=== PATIENT | male | born 1965 | race Caucasian/White ===

== ENCOUNTER 2017-02-23 10:53 | Outpatient (CLI) | payer SELFPAY | END 2017-02-23 10:54 | disposition EMS.NT | LOC: EMS 10:53 → MERGE 10:53 → EMS 10:54 | PROVIDERS: ATTEND Surgery | DX: R06.02 Shortness of breath (principal) ==

== ENCOUNTER 2017-02-23 11:20 | Emergency (ER) | payer OTHER ==
[2017-02-23] MEDS ORDERED: ALBUTEROL NEB 2.5 MG/3 ML INH STA (11:33)
--- NOTE | 2017-02-23 11:36 | ED Physician Documentation ---
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 open a pea trap and there were drain products in the trap and he inhaled the fumes worked for a few minutes then began to feel shaky and cough so left even after returning to fresh air the symptoms persist also got splashed but he washed that off Review of Systems Cardiac: reports: Chest pain / pressure Respiratory: reports: Dyspnea, Cough PD PAST MEDICAL HISTORY - Present Medications Home Medications: Ambulatory Orders Medication Instructions Recorded Confirmed Albuterol Sulfate [Proair Hfa 2 puffs INH Q4H PRN #1 inhaler 02/23/17 Inhaler] Levothyroxine [Synthroid] 25 mcg PO DAILY 02/23/17 02/23/17 Lisinopril 20 mg PO DAILY 02/23/17 02/23/17 predniSONE [Deltasone] 60 mg PO DAILY 5 Days 02/23/17 - Allergies Allergies/Adverse Reactions: Allergies Allergy/AdvReac Type Severity Reaction Status Date / Time No Known Drug Allergies Allergy Verified 02/23/17 11:28 PD ED PE NORMAL - Vitals Vital signs reviewed: Yes - HEENT HEENT: Other (no visible burn or erythema or swelling) - Respiratory Respiratory: No respiratory distress, Other (coughing, dec air movement) - Neuro Neuro: Alert and oriented X 3 Results - Vitals Vitals: Vital Signs - 24 hr 02/23/17 02/23/17 02/23/17 11:22 11:45 14:05 Temperature 36.6 C Heart Rate 94 80 85 Respiratory 16 18 20 Rate Blood Pressure 109/50 L 146/99 H O2 Saturation 96 99 02/23/17 15:10 Temperature Heart Rate 90 Respiratory 18 Rate Blood Pressure O2 Saturation 100 Oxygen O2 Source Room air - Rads (name of study) CXR Radiology: See rad report (minimal scar and/or atelectasis lingula) PD MEDICAL DECISION MAKING - ED course ED course: pt able to get names of drain computer compositor that wre involved - liquid plummr pro ( sodium hydroxide, sodium hypochloritie, surfactants) and liquid lightning ( buffers sulfuric acid) d/w poison control - these can combine to release chloride gas rec watching pt in ER for several hr - if better dc, if worse get another CXR to look for developing pneumonitis no change with neb tried prednisone and cough meds too pt observed 4 hr and gradually improved now able to walk around the ER s sig sx and sat 100% pt states he has called the house and house shoe puller is OK Departure - Departure Disposition: 01 Home, Self Care Clinical Impression: Acute chemical pneumonitis Condition: Good Instructions: ED Inhalation Chemical Prescriptions: predniSONE [Deltasone] 60 mg PO DAILY 5 Days Albuterol Sulfate [Proair Hfa Inhaler] 2 puffs INH Q4H PRN #1 inhaler PRN Reason: Shortness Of Air/Wheezing Comments: Please follow up with your PMD if the symptoms persist Return to the ER if worse Also, please have your PMD recheck your blood pressure - it was high today Forms: Activity restrictions
[2017-02-23] MEDS ORDERED: ALBUTEROL NEB 2.5 MG/3 ML INH ONE (11:45)
--- NOTE | 2017-02-23 12:29 | XRAY Preliminary Report ---
Exam: XR Chest 2 View PA/LAT IMPRESSION: 1. Minimal scar and/or subsegmental atelectasis at the lingula. No pneumothorax or pleural effusion. [facility] SITE ID: [id number]
--- NOTE | 2017-02-23 12:31 | XRAY Report ---
EXAM: CHEST RADIOGRAPHY EXAM DATE: 02/23/2017 11:53 AM. CLINICAL HISTORY: Cough and chest pain after inhaling book cleaner. COMPARISON: None. TECHNIQUE: 2 views. FINDINGS: Lungs/Pleura: Minimal scar and/or subsegmental atelectasis at the lingula. No pneumothorax or pleural effusion. No focal consolidation. Mediastinum: Heart and mediastinal contours are unremarkable. Other: None. IMPRESSION: 1. Minimal scar and/or subsegmental atelectasis at the lingula. No pneumothorax or pleural effusion. [facility] Referring Provider Line: [phone] SITE ID: [id number]
[2017-02-23] MEDS ORDERED: predniSONE 20 MG TABLET PO STA (12:51)
[2017-02-23] MEDS ORDERED: guaiFENesin/CODEINE 5 ML UDC PO STA (12:51)
[2017-02-23] MEDS ORDERED: predniSONE 20 MG TABLET ONE (13:11)
[2017-02-23] MEDS ORDERED: guaiFENesin/CODEINE 5 ML UDC ONE (13:12)
[2017-02-23 14:06] VITALS: BP 146/99
== END 2017-02-23 15:23 | disposition home or self-care (01) ==
LOC: EDBD → ED 11:20 → MERGE 11:20 → ED 15:23
DX: T59.891A Toxic effect of other specified gases, fumes and vapors, accidental (unintentional), initial encounter (principal); J68.0 Bronchitis and pneumonitis due to chemicals, gases, fumes and vapors
CPT/HCPCS: 1040M; 71020; 94640; 99283; A9270; J7512; J7613

== ENCOUNTER 2018-11-13 21:54 | Emergency (ER) | payer OTHER ==
--- NOTE | 2018-11-13 22:17 | ED Physician Documentation ---
PD HPI NECK PAIN - Stated complaint Stated Complaint: NECK PX - Chief complaint Chief Complaint: Trauma Hd/Nk - History obtained from History obtained from: Patient - History of Present Illness Timing - onset: How many days ago Timing - duration: Days (5) Timing - details: Gradual onset Pain level max: 9 Pain level now: 5 Location: Left Quality: Pain. No: Throbbing Associated symptoms: Numbness (Chronic numbness to the right thumb due to cervical arthritis). No: Fever, Weakness Improves with: Nothing Worsened by: Movement Contributing factors: No: Lifting, Twisting Similar symptoms before: Has not had sx before Recently seen: Not recently seen - Additional information Additional information: This is a 53-year-old man who presents with complaints that he developed pain behind his left ear 5 days ago. He woke up with it has been constant since then. He is been taking Tylenol just 1 325 mg tablet at a time the last dose was around 2 hours ago and ibuprofen just 200 mg at a time last dose was at noon. He denies any injury. Started out kind of across the back of his head but then centered behind the left ear. He is been putting heat on it. He has not tried icing it. He has not noted anything that makes it really worse and is not getting any relief from the meds. It is bothering him enough that he is only sleeping a few hours at a time and then has to get up because he is so uncomfortable. Denies any blurry or double vision, no pain radiating down the arms or legs he does have some chronic numbness in the right thumb. He denies any shortness of breath or cough. Denies ear pain or sore throat. No dizziness. 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 Review of Systems Constitutional: denies: Fever Ears: denies: Ear pain Nose: denies: Congestion Respiratory: denies: Dyspnea, Cough Skin: denies: Rash Musculoskeletal: reports: Neck pain Neurologic: denies: Generalized weakness, Focal weakness, Numbness, Headache, Head injury PD PAST MEDICAL HISTORY - Past Medical History Cardiovascular: None Respiratory: Sleep apnea Endocrine/Autoimmune: HyPOthyroidism, Type 2 diabetes HEENT: Chronic hearing loss, Other Psych: None Musculoskeletal: None Derm: None - Past Surgical History Past Surgical History: No - Present Medications Home Medications: Ambulatory Orders Medication Instructions Recorded Confirmed Levothyroxine [Synthroid] 25 mcg PO DAILY 02/23/17 11/13/18 Lisinopril 20 mg PO DAILY 02/23/17 11/13/18 Cyclobenzaprine [Flexeril] 10 mg PO TID PRN #10 tablet 11/13/18 Esomeprazole Magnesium [Nexium] 20 mg PO DAILY 11/13/18 11/13/18 Ibuprofen [Motrin] 600 mg PO Q6H PRN #30 tab 11/13/18 - Allergies Allergies/Adverse Reactions: Allergies Allergy/AdvReac Type Severity Reaction Status Date / Time No Known Drug Allergies Allergy Verified 11/13/18 22:02 - Social History Does the pt smoke?: No PD ED PE NORMAL - Vitals Vital signs reviewed: Yes - General General: Alert and oriented X 3, No acute distress, Well developed/nourished - HEENT HEENT: Atraumatic, PERRL, EOMI, Ears normal, Moist mucous membranes, Pharynx benign - Neck Neck: Supple, no meningeal sign, No adenopathy, No bruit, Other (He has tenderness with palpation along the left sternocleidomastoid muscle and right at the insertion point at the mastoid. There is no swelling. No lymphadenopathy. 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 The left were 1+. Sensation is intact to light touch to the left arm.) Results - Vitals Vitals: Vital Signs - 24 hr 11/13/18 21:57 Temperature 36.4 C L Heart Rate 81 Respiratory 18 Rate Blood Pressure 148/101 H O2 Saturation 99 Oxygen O2 Source Room air PD MEDICAL DECISION MAKING - ED course Complexity details: d/w patient ED course: Patient has tenderness with palpation along the sternocleidomastoid muscle. Encouraged him to take higher doses of ibuprofen and will give a prescription for Motrin and have provided Flexeril prepackAs needed. He is instructed not to night and a prescription for 10 tablets that he can fill drive or operate machinery if he is taking the Flexeril. Departure - Departure Disposition: 01 Home, Self Care Clinical Impression: Strain of sternocleidomastoid muscle Qualifiers: Encounter type: initial encounter Qualified Code(s): S16.1XXA - Strain of muscle, fascia and tendon at neck level, initial encounter Condition: Good Instructions: ED Sprain Strain Neck Follow-Up: [facility] [Provider Group] Prescriptions: Cyclobenzaprine [Flexeril] 10 mg PO TID PRN #10 tablet PRN Reason: Spasms Ibuprofen [Motrin] 600 mg PO Q6H PRN #30 tab PRN Reason: Pain Comments: Take Motrin 3 times a day with food for the next 2 to 3 days. Take the Flexeril at night if needed to help with sleep. Do not drive or operate machinery after taking that medication. If the pain persists or you develop pain radiating down the arms or legs he should follow-up with your primary care provider for further evaluation.
[2018-11-13] MEDS ORDERED: IBUPROFEN 600 MG TABLET PO STA (22:35)
[2018-11-13] MEDS ORDERED: CYCLOBENZAPRINE 10 MG Prepack 2 PO PRN (22:35)
[2018-11-13 22:46] VITALS: BP 149/92
== END 2018-11-13 22:55 | disposition home or self-care (01) ==
LOC: ED 21:54
DX: S16.1XXA Strain of muscle, fascia and tendon at neck level, initial encounter (principal); X58.XXXA Exposure to other specified factors, initial encounter; E11.9 Type 2 diabetes mellitus without complications
CPT/HCPCS: 99283; A9270

== ENCOUNTER 2021-05-19 19:45 | Emergency (ER) | payer OTHER ==
[2021-05-19] MEDS ORDERED: HYDROcod/ACETAM 5/325 MG TABLET PO STA (20:44)
[2021-05-19] MEDS ORDERED: predniSONE 20 MG TABLET PO STA (20:45)
--- NOTE | 2021-05-19 20:47 | ED Physician Documentation ---
History of Present Illness - Stated complaint Stated Complaint: LOW BACK PX/WORK INJ - Chief complaint Chief Complaint: Back Pain - Additonal information Additional information: 56-year-old male presents emergency department for evaluation of acute left low back pain. He was installing a water heater and attaching the earthquake straps when he moved and felt a sudden pull in his back. No falls or trauma. He has occasionally tweaked his back in the past. No saddle anesthesia. No history of spinal instrumentation or diabetes. No history of cancer. Review of Systems Constitutional: reports: Reviewed and negative Ears: reports: Reviewed and negative Nose: reports: Reviewed and negative Cardiac: reports: Reviewed and negative Respiratory: reports: Reviewed and negative Skin: reports: Reviewed and negative Musculoskeletal: reports: Back pain PD PAST MEDICAL HISTORY - Past Medical History Past Medical History: Yes Cardiovascular: None Respiratory: Sleep apnea Neuro: None Endocrine/Autoimmune: HyPOthyroidism, Type 2 diabetes GI: GERD HEENT: Chronic hearing loss, Other Psych: None Musculoskeletal: None Derm: None - Past Surgical History Past Surgical History: No General: Colonoscopy - Present Medications Home Medications: Ambulatory Orders Medication Instructions Recorded Confirmed Levothyroxine [Synthroid] 25 mcg PO DAILY 02/23/17 05/19/21 lisinopriL [Lisinopril] 20 mg PO DAILY 02/23/17 05/19/21 Cyclobenzaprine [Flexeril] 10 mg PO TID PRN #10 tablet 11/13/18 05/19/21 Esomeprazole Magnesium [Nexium] 20 mg PO DAILY 11/13/18 05/19/21 Ibuprofen [Motrin] 600 mg PO Q6H PRN #30 tab 11/13/18 05/19/21 methocarbamoL [Methocarbamol] 750 mg PO BID PRN #15 tablet 05/19/21 predniSONE [Deltasone] 40 mg PO DAILY 4 Days #8 tablet 05/19/21 - Allergies Allergies/Adverse Reactions: Allergies Allergy/AdvReac Type Severity Reaction Status Date / Time No Known Drug Allergies Allergy Verified 05/19/21 19:47 - Social History Does the pt smoke?: No Smoking Status: Never smoker Does the pt drink ETOH?: Yes Does the pt have substance abuse?: No - Immunizations Immunizations are current?: No PD ED PE EXPANDED - General General: Alert, No acute distress - Cardiac Cardiac: Regular Rate, Radial strong equal, Cap refill < 2 sec - Respiratory Respiratory: Clear to ausultation aj. No: Distress, Labored - Abdomen Abdomen: Normal Bowel sounds. No: Tender to palpation - Back Back: Soft tissue tenderness (Mild left lower paraspinous tenderness. Reduced forward flexion of the lumbar spine. No midline spinous process tenderness. 2+ patellar reflexes. Motor strength 5 of 5. Normal gait.). No: Vertebral tenderness, Straight leg raise + R, Straight leg raise + L, CVA TTP right, CVA TTP left - Neuro Neuro: Alert and Oriented X 3, CNII-XII intact, Normal gait - GCS Eye Opening: Spontaneous Motor: Obeys Commands Verbal: Oriented Total: 15 Results - Vitals Vitals: Vital Signs - 24 hr 05/19/21 19:47 Temperature 36.5 C Heart Rate 88 Respiratory 16 Rate Blood Pressure 134/89 H O2 Saturation 96 Oxygen O2 Source Room air PD MEDICAL DECISION MAKING - ED course Complexity details: reviewed results, considered differential, d/w patient ED course: 56-year-old male presents emergency department for evaluation of acute left low back pain sustained when he tweaked his back while installing a water heater. With the exception of age there are no back pain red flags. He has a very reassuring exam. Patient was given a dose of hydrocodone here in the emergency department as well as prednisone. Will be discharged with a 4-day course of prednisone otherwise. His will also be recommended to have methocarbamol. Discussed routine conservative management. If not improved may benefit from physical therapy or MRI imaging. Departure - Departure Disposition: 01 Home, Self Care Clinical Impression: Acute left-sided low back pain Qualifiers: Sciatica presence: without sciatica Qualified Code(s): M54.50 - Low back pain, unspecified Instructions: ED Back Spasm No Trauma Ch Prescriptions: predniSONE [Deltasone] 40 mg PO DAILY 4 Days #8 tablet methocarbamoL [Methocarbamol] 750 mg PO BID PRN #15 tablet PRN Reason: Spasms Comments: Blake I would like to have you fill the prescription for the prednisone and begin taking tomorrow evening. You will take it daily for the next 4 days. I am also prescribing limited amount of a muscle relaxer that should help with pain. Please take Tylenol for pain relief. Gentle stretching can also be helpful. If her symptoms are not much better after 7 to 10 days please see your primary care doctor. You may benefit from referral to physical therapy at that time. Return to the emergency department if you lose sensation in your genital area, become incontinent of bowel movements or urine or you have sudden weakness in your lower extremities. Your prescriptions have been sent to the [facility] in [place]
[2021-05-19 20:58] VITALS: BP 132/85
== END 2021-05-19 20:57 | disposition home or self-care (01) ==
LOC: ED 19:45
DX: M54.50 Low back pain, unspecified (principal); E03.9 Hypothyroidism, unspecified; E11.9 Type 2 diabetes mellitus without complications; K21.9 Gastro-esophageal reflux disease without esophagitis; H91.90 Unspecified hearing loss, unspecified ear; Z79.899 Other long term (current) drug therapy
CPT/HCPCS: 99282; 99283; A9270; J7512

== ENCOUNTER 2021-07-20 21:02 | Emergency (ER) | payer OTHER ==
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
[2021-07-20 21:33] VITALS: BP 148/91
== END 2021-07-20 21:20 | disposition home or self-care (01) ==
LOC: ED 21:02
DX: Z04.1 Encounter for examination and observation following transport accident (principal); V43.52XA Car driver injured in collision with other type car in traffic accident, initial encounter; Y92.410 Unspecified street and highway as the place of occurrence of the external cause; E11.9 Type 2 diabetes mellitus without complications
CPT/HCPCS: 99281; 99282

== ENCOUNTER 2021-07-24 12:40 | Emergency (ER) | payer OTHER ==
[2021-07-24 13:00] VITALS: BP 148/88
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
--- NOTE | 2021-07-24 14:23 | XRAY Report ---
PROCEDURE: Knee 3 View RT INDICATIONS: injury/pain TECHNIQUE: 2 views of the none knee(s) were acquired. COMPARISON: None. FINDINGS: Bones: No fractures or dislocations. No suspicious bony lesions. Arthritic changes are present wit hin the knee. Soft tissues: Minimal joint effusion. No suspicious soft tissue calcifications. IMPRESSION: No visualized acute fracture or dislocation. However, occult injury cannot be excluded. Recommend short interval imaging follow-up in 7-10 days as clinically indicated for additional evalua tion. Reviewed by: Yesenia Porter MD on 07/24/2021 2:21 PM [facility] Approved by: Yesenia Porter MD on 07/24/2021 2:21 PM [facility] Station ID: [id number]
== END 2021-07-24 15:19 | disposition home or self-care (01) ==
LOC: ED 12:40
DX: S89.91XA Unspecified injury of right lower leg, initial encounter (principal); V89.2XXA Person injured in unspecified motor-vehicle accident, traffic, initial encounter; E11.9 Type 2 diabetes mellitus without complications
CPT/HCPCS: 99282; 99283

== ENCOUNTER 2022-06-03 19:08 | Emergency (ER) | payer OTHER ==
[2022-06-03 19:39] VITALS: BP 145/86
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
[2022-06-03] MEDS ORDERED: HYDROcod/ACETAM 5/325 MG TABLET PO STA (21:06)
[2022-06-03] MEDS ORDERED: CYCLOBENZAPRINE 10 MG Prepack 2 PO STA (21:07)
[2022-06-03] MEDS ORDERED: HYDROcod/ACET 5/325 Prepack 4 PO STA (21:14)
== END 2022-06-03 21:23 | disposition home or self-care (01) ==
LOC: ED 19:08
DX: M54.50 Low back pain, unspecified (principal); S63.502A Unspecified sprain of left wrist, initial encounter; W00.0XXA Fall on same level due to ice and snow, initial encounter; Y93.89 Activity, other specified; Y92.481 Parking lot as the place of occurrence of the external cause; R51.9 Headache, unspecified
CPT/HCPCS: 99282

== ENCOUNTER 2022-07-16 16:15 | Emergency (ER) | payer OTHER ==
[2022-07-16 16:33] VITALS: BP 127/81
--- NOTE | 2022-07-16 16:38 | ED Physician Documentation ---
PD HPI UPPER EXT INJURY - Stated complaint Stated Complaint: L SHOULDER INJURY - Chief complaint Chief Complaint: Trauma Ext - History obtained from History obtained from: Patient - History of Present Illness Location: Left - Additonal information Additional information: 57-year-old male presents with left shoulder pain after pulling out a bathtub at work. He felt a sudden pop in the left anterior upper shoulder with Pain radiating down the arm, no numbness or paresthesia. Pain Worse with palpation and movement particularly reaching overhead. Pain localized to the shoulder, no other injuries. He is concerned as he had some cervical spine surgery and wants to make sure that is okay though he had no trauma to the spine today. He has no fever or chills. He did not attempt any treatment for this issue.He is concerned because he bañuelos PD PAST MEDICAL HISTORY - Past Medical History Past Medical History: Yes Cardiovascular: None Respiratory: Sleep apnea Neuro: None Endocrine/Autoimmune: HyPOthyroidism, Type 2 diabetes GI: GERD HEENT: Chronic hearing loss, Other Psych: None Musculoskeletal: None Derm: None - Past Surgical History Past Surgical History: Yes General: Colonoscopy Ortho: Spine surgery - Present Medications Home Medications: Ambulatory Orders Medication Instructions Recorded Confirmed Levothyroxine [Synthroid] 25 mcg PO DAILY 02/23/17 07/20/21 lisinopriL [Lisinopril] 20 mg PO DAILY 02/23/17 07/20/21 Esomeprazole Magnesium [Nexium] 20 mg PO DAILY 11/13/18 07/20/21 - Allergies Allergies/Adverse Reactions: Allergies Allergy/AdvReac Type Severity Reaction Status Date / Time No Known Drug Allergies Allergy Verified 07/16/22 16:29 - Social History Does the pt smoke?: No Smoking Status: Never smoker Does the pt drink ETOH?: Yes Does the pt have substance abuse?: No - Immunizations Immunizations are current?: No - POLST Patient has POLST: No PD ED PE NORMAL - Vitals Vital signs reviewed: Yes - General General: Alert and oriented X 3, No acute distress, Well developed/nourished - HEENT HEENT: Atraumatic, Moist mucous membranes - Neck Neck: Supple, no meningeal sign, No bony TTP, No JVD - Cardiac Cardiac: RRR, No murmur - Respiratory Respiratory: No respiratory distress, Clear bilaterally - Derm Derm: Normal color, Warm and dry, No rash - Extremities Extremities: No deformity, Other (Mild left anterior shoulder tenderness to palpation without any swelling or deformity, no clavicle or scapula tenderness. Mild impingement signs, no obvious deformity or dislocation) Results - Vitals Vitals: Vital Signs - 24 hr 07/16/22 16:27 Temperature 36.8 C Heart Rate 84 Respiratory 16 Rate Blood Pressure 127/81 H O2 Saturation 100 Oxygen O2 Source Room air PD Medical Decision Making - ED course Complexity details: reviewed results, re-evaluated patient, considered differential, d/w patient ED course: 57-year-old male presents with left shoulder pain after an injury at work. His physical exam is reassuring I does have some mild shoulder strain and possible impingement signs. He has no signs of fracture or dislocation on imaging and he was advised to use supportive measures including cool compress, ibuprofen or Tylenol for pain and he can use a sling but advised to Take arm out several times a day and do light range of motion activity. Avoid any lifting twisting reaching overhead or pulling until symptoms improve. If he has ongoing symptoms after couple weeks, patient to see PCP for follow-up. Departure - Departure Disposition: 01 Home, Self Care Clinical Impression: Shoulder injury Qualifiers: Encounter type: initial encounter Laterality: left Qualified Code(s): S49.92XA - Unspecified injury of left shoulder and upper arm, initial encounter Condition: Good Instructions: ED Sprain Shoulder Comments: Please follow-up with your primary doctor in 1 to 2 weeks if you have ongoing pain, they may consider physical therapy or additional imaging. Today, I do not see any acute injuries on x-ray but I cannot rule out any other muscle or ligamentous injury at this time.
--- NOTE | 2022-07-16 17:51 | XRAY Report ---
PROCEDURE: Shoulder 3 View LT INDICATIONS: pain TECHNIQUE: 3 views of the shoulder were acquired. COMPARISON: Correlation is made with a coming cervical spine plain films, 07/16/2022 FINDINGS: Bones: No fractures or dislocations. No suspicious bony lesions. Visualized ribs appear intact. D egenerative changes are seen, including moderate glenohumeral joint space narrowing. Remodeling julian es are seen, including osteophyte formation along the inferior aspect of the glenoid and the inferior medial aspect of the humeral head. Cervical spine fixation hardware is partially seen. Soft tissues: No suspicious soft tissue calcifications. The visualized lung demonstrates a normal a ppearance. IMPRESSION: Left shoulder degenerative changes are seen, without acute abnormality identified. If it would be helpful for clinical management decision making, please consider a dedicated, schedule d shoulder MRI for further evaluation (assuming that there is no contraindication). Reviewed by: El Verma MD on 07/16/2022 4:50 PM [place] Approved by: El Verma MD on 07/16/2022 4:[address] [facility] Station ID: [id number]
--- NOTE | 2022-07-16 17:52 | XRAY Report ---
PROCEDURE: Cervical Spine 2 View INDICATIONS: neck pain, atraumatic TECHNIQUE: 3 view(s) of the cervical spine were acquired. COMPARISON: Correlation is made with the accompanying right shoulder plain films FINDINGS: Bones: No fractures or dislocations to the T1 level. The lateral masses of C1 appear intact on the odontoid view. No suspicious bony lesions. Cervical spine fixation hardware is seen, with anterior fusion plate extending from C4 through C7. Th ere is corpectomy with metallic strut graft seen at the C6 level. There is a disc spacer seen at C4-C 5. There is overall straightening of the normal cervical lordosis. Soft tissues: No prevertebral soft tissue swelling. The visualized lung demonstrates a normal appea andrea. IMPRESSION: Postoperative hardware, without complication seen. No acute bony abnormality is seen. Reviewed by: El Verma MD on 07/16/2022 4:51 PM [place] Approved by: El Verma MD on 07/16/2022 4:51 PM [facility] Station ID: [id number]
== END 2022-07-16 18:30 | disposition home or self-care (01) ==
LOC: ED 16:15
DX: S49.92XA Unspecified injury of left shoulder and upper arm, initial encounter (principal); X58.XXXA Exposure to other specified factors, initial encounter; Y99.0 Civilian activity done for income or pay
CPT/HCPCS: 1040M; 72040; 73030; 99283; 99284

== ENCOUNTER 2022-12-03 15:38 | Outpatient (CLI) | payer OTHER ==
[2022-12-03 17:16] VITALS: BP 110/69
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
== END 2022-12-03 15:39 | disposition home or self-care (01) ==
LOC: SC 15:38
PROVIDERS: ATTEND Nurse Practitioner Family
DX: G47.33 Obstructive sleep apnea (adult) (pediatric) (principal); E66.9 Obesity, unspecified; Z68.36 Body mass index [BMI] 36.0-36.9, adult
CPT/HCPCS: 99203; 99212

== ENCOUNTER 2022-12-19 20:41 | Outpatient (CLI) | payer OTHER | END 2022-12-19 20:42 | disposition home or self-care (01) | LOC: SC 20:41 | PROVIDERS: ATTEND Nurse Practitioner Family | DX: G47.33 Obstructive sleep apnea (adult) (pediatric) (principal) | CPT/HCPCS: 95810 ==

== ENCOUNTER 2023-01-06 11:16 | Outpatient (CLI) | payer OTHER ==
--- NOTE | 2023-01-06 12:01 | SLEEP CARE CONSULTATION ---
Information from patient questionnaire entered by Calista Chakraborty. I have reviewed and concur with the information entered by Calista Chakraborty. This document represents the service I personally performed and the decisions made by , Bernice Chauhan ARNP. History of Present Illness Service Date and Time: 01/06/2023 1116 Initial [place] Sleepiness Scale score: 11 (12/03/2022) Current [place] Sleepiness Scale score: 10 (01/06/23) Additional HPI information: BARBIE BANEGAS returns for follow up and results of the recently performed polysomnography. PSG showed very severe obstructive sleep apnea with an average AHI of 65.5 and los oxygen saturation of 64%. I explained the pathophysiology behind obstructive sleep apnea. We then spent quite a bit of time discussing different treatment options. For mild obstructive sleep apnea, surgery and oral appliance are alternatives to nasal CPAP therapy but in moderate or severe cases, nasal CPAP is the most effective and reliable treatment. I strongly recommended losing weight. After some discussion, the patient is to continue with nasal autoCPAP set at 14- 15 cmH20. Patient was cautioned about risks of drowsy driving until sleepiness symptoms resolve. Sleep Study - Results Type of Sleep Study: Polysomnography (COMPLETED 12/19/22) Prior sleep studies: Yes Year and Where: 2006; 2012 titration study [place] Polysomnography/Home Sleep Study results: IMPRESSION: The quality of the study is good. The patient had reduced sleep efficiency due to several prolonged awakenings after the sleep onset. The sleep architecture was abnormal for sleep fragmentation and lack of slow wave sleep (N3). Respiratory monitoring showed very severe obstructive sleep apnea-hypopnea (AHI = 65.5) associated with frequent arousals, oxyhemoglobin desaturation and moderate hypoxia (los oxygen saturation of 64%). The respiratory events occurred independently of sleep stage and body position (supine AHI = 85.0; nonsupine = 55.97). Snore was moderate to loud in intensity. There was no s ignificant periodic leg movement of sleep. Cardiac rhythm was normal sinus rhythm without significant arrhythmia. No abnormal behavior (parasomnia) observed during the night. Allergies and Home Medications Known drug allergies: No Drug allergies reviewed: Yes Home medication list reviewed: Yes (no changes) Allergy and home medication list: Allergies No Known Drug Allergies Allergy (Verified 01/05/23 13:45) Review of Systems Review of systems same as previous: Yes (no changes) Physical Exam Vital signs obtained and entered by: CALISTA Mahmood MA Blood Pressure: 132/82 (LEFT ARM) Cuff size: regular Heart Rate: 79 O2 Saturation: 99 Height: 5 ft 6 in Weight: 231 lb Body Mass Index: 37.3 BMI Classification: Obese Impression and Plan 1. Obstructive Sleep Apnea-Hypopnea Syndrome, very severe, with an average AHI of 65.5. He is still interested in looking in to the Inspire implant for sleep apnea. He was informed that he would have to qualify for this type of therapy. A referral is needed for an ENT specialist who would evaluate if Inspire therapy is indeed right for them. Qualifications to be evaluated for Inspire therapy include a previous diagnosis of moderate to severe obstructive sleep apnea. They must also have tried, failed or have been unable to tolerate CPAP treatment. They should also have a BMI of 32 or less and do not have any other active implantable devices present (like a pacemaker). Patient will need to undergo a sleep endoscopy where they are put under light sedation and the airway is examined by an endoscope to determine the cause of their sleep apnea. If it is determined that Inspire therapy is right for them than they may proceed to implantation if the so decide. A referral was made to Dr. Diaz for evaluation and possible treatment as needed. Patient's apnea severity and rationale for treatment to reduce apnea, improve sleep quality and reduce cardiovascular and cerebrovascular events was reviewed. I also reviewed the benefit of consistent device use of CPAP for hypertension and gastric reflux. The patient is using his replacement CPAP device from [employer]. We also changed his pressure at his last visit due to an elevated residual AHI at 8.9. He did not bring in his SD card or machine. I asked if he could bring those in today and he said he could because he does not live very far from our office. If his apnea is well controlled than we will followup with him next year. 2. Hypoxemia, moderate, with a los oxygen saturation of 64% and 61.3 minutes spent under 90%. His baseline oxygen saturation was normal with an average oxygen saturation of 93%. * Continue auto CPAP pressure at 14-15 cmH2O * Referral to Dr. Diaz for evaluation for Inspire implant * Notify me if snoring with mask or feeling that the pressure is too much or too little * Attempt to lose weight * Call this office if any problems using CPAP * Return for follow up in 1 year, or sooner if concerns arise Counseling Topics: Weight loss health impact Visit Type: In Office Time Spent with Patient (minutes): 22 Provider Statement: I spent 100% of the Face to Face Visit with the patient with greater than 50% spent counseling the patient and coordination of care.
[2023-01-06 12:04] VITALS: BP 132/82
== END 2023-01-06 11:17 | disposition home or self-care (01) ==
LOC: SC 11:16
PROVIDERS: ATTEND Nurse Practitioner Family
DX: G47.33 Obstructive sleep apnea (adult) (pediatric) (principal); R09.02 Hypoxemia; E66.9 Obesity, unspecified; Z68.37 Body mass index [BMI] 37.0-37.9, adult
CPT/HCPCS: 99212; 99213

== ENCOUNTER 2023-02-16 11:24 | Outpatient (CLI) | payer OTHER ==
--- NOTE | 2023-02-16 12:02 | Sleep Patient Instructions ---
Sleep Center Visit Summary - Patient Visit Information Reason for Visit: TWO MONTH FOLLOWUP FOR PAP THERAPY - Patient Instructions Additional Instructions: You were here for follow up of CPAP therapy. You will be continued on CPAP therapy with pressure at 15-17 cmH2O. Please let us know if the pressure change is uncomfortable and we can make further adjustments of the pressure. You should follow up with sleep care in 1-2 months. You may contact us sooner for any questions or concerns. - Clinic Information Contact: [facility] [address] [place] [address] [email or web address] T: [phone]
--- NOTE | 2023-02-16 12:05 | SLEEP CARE CONSULTATION ---
Information from patient questionnaire entered by Alysha Chakraborty. I have reviewed and concur with the information entered by Alysha Chakraborty. This document represents the service I personally performed and the decisions made by me, Bernice Chauhan ARNP. History of Present Illness Service Date and Time: 02/16/2023 1124 Previous diagnosis: Very Severe, Obstructive Sleep Apnea-Hypopnea Syndrome AHI: 65.5 (12/2022) Reason for follow up: other (2 MONTH F/U) Equipment type: CPAP (Dreamstation, recertified) Equipment obtained from: [employer] (getting supplies) Mask style: Full face Backup mask available: Yes (other mask) Last cushion change: last week on the Prior sleep studies: Yes Year and Where: 2006; 2012 titration study [facility] Type of Sleep Study: Polysomnography (COMPLETED 12/19/22) HPI additional information: BARBIE BANEGAS was diagnosed to have very severe, AHI 65.5, obstructive sleep apnea-hypopnea syndrome and returned today for CPAP therapy two month follow-up. Sleep Study - Results Type of Sleep Study: Polysomnography (COMPLETED 12/19/22) Prior sleep studies: Yes Year and Where: 2006; 2012 titration study [facility] CPAP Compliance Data - Data Reviewed with Patient Average duration of nightly device use: 6 hours 42 minutes Compliance rate %: 98.3 (59/60 days used) Current pressure setting (cmH2O): 14-17 (median 16.1) Average residual AHI: 5.6 Central apnea: 0.9 Obstructive apnea: 4.1 Hypopnea: 0.6 Average large leak: 48 secs Subjective Patient concerns: reports: mask leak noise, condensation in mask/hose (occasional). denies: aerophagia, mask discomfort, air blowing in eyes, nasal congestion, dry mouth, nose, throat, epistaxis Observed to snore while using device: No Current pressure setting perceived as: comfortable On therapy, patient: reports: sleeping better, awakening more refreshed, being more awake and alert during the day, more rested overall. denies: drowsiness while driving Initial [place] Sleepiness Scale score: 11 (12/03/2022) Current [place] Sleepiness Scale score: 15 (02/16/23) Allergies and Home Medications Known drug allergies: No Drug allergies reviewed: Yes Home medication list reviewed: Yes (no changes) Allergy and home medication list: Allergies No Known Drug Allergies Allergy (Verified 02/12/23 09:38) Review of Systems Review of systems same as previous: Yes (no changes) Physical Exam Vital signs obtained and entered by: ALYSHA Mahmood MA Blood Pressure: 112/70 (LEFT ARM) Cuff size: regular Heart Rate: 91 O2 Saturation: 98 Height: 5 ft 6 in Weight: 234 lb 6.4 oz Body Mass Index: 37.8 BMI Classification: Obese Impression and Plan 1. Obstructive Sleep Apnea-Hypopnea Syndrome, very severe, with good treatment compliance and good apnea control. On CPAP therapy, the patient has better sleep quality and is more rested overall. Patient has significant improvement of their sleep apnea although slightly ineffective and is satisfied with current CPAP therapy.The patients pressure will be changed to autoCPAP 15-17 cmH20 for elevation of residual AHI. Patient advised to contact me if pressure change is uncomfortable so that it can be adjusted. Goals for apnea control discussed. Patient's apnea severity and rationale for treatment to reduce apnea, improve sleep quality and reduce cardiovascular and cerebrovascular events was reviewed. I also reviewed the benefit of consistent device use of CPAP for hypertension and gastric reflux. 2. Obesity, unspecified. Currently patients BMI is 37.8. Obesity increases the risk of apnea, CPAP pressure requirements and overall health risks especially cardiovascular and diabetes. Thus patient is advised to lose weight. * Change auto CPAP pressure to 15-17 cmH2O * Notify me if snoring with mask or feeling that the pressure is too much or too little * Attempt to lose weight * Call this office if any problems using CPAP * Return for follow up in 1-2 months, or sooner if concerns arise Counseling Topics: Spare mask, Weight loss health impact Visit Type: In Office Time Spent with Patient (minutes): 19 Provider Statement: I spent 100% of the Face to Face Visit with the patient with greater than 50% spent counseling the patient and coordination of care.
[2023-02-16 12:08] VITALS: BP 112/70; O2SAT 98
== END 2023-02-16 11:25 | disposition home or self-care (01) ==
LOC: SC 11:24
PROVIDERS: ATTEND Nurse Practitioner Family
DX: G47.33 Obstructive sleep apnea (adult) (pediatric) (principal); E66.9 Obesity, unspecified; Z68.37 Body mass index [BMI] 37.0-37.9, adult
CPT/HCPCS: 99212

== ENCOUNTER 2023-05-14 10:26 | Outpatient (CLI) | payer OTHER ==
--- NOTE | 2023-05-14 10:04 | SLEEP CARE CONSULTATION ---
Information from patient questionnaire entered by Alysha Chakraborty. I have reviewed and concur with the information entered by Alysha Chakraborty. This document represents the service I personally performed and the decisions made by me, Bernice Chauhan ARNP. History of Present Illness Service Date and Time: 05/14/2023 1000 Previous diagnosis: Very Severe, Obstructive Sleep Apnea-Hypopnea Syndrome AHI: 65.5 (12/2022) Reason for follow up: three month (F/U), annual Equipment type: CPAP (Dreamstation, recertified) Equipment obtained from: [employer] (getting supplies) Mask style: Full face Backup mask available: Yes (old mask) Last cushion change: last week Prior sleep studies: Yes Year and Where: 2006; 2012 titration study [facility] Type of Sleep Study: Polysomnography (COMPLETED 12/19/22) HPI additional information: BARBIE BANEGAS was diagnosed to have very severe, AHI 65.5, obstructive sleep apnea-hypopnea syndrome and returns via telephone visit today for CPAP therapy three month follow-up. Sleep Study - Results Type of Sleep Study: Polysomnography (COMPLETED 12/19/22) Prior sleep studies: Yes Year and Where: 2006; 2012 titration study [facility] CPAP Compliance Data - Data Reviewed with Patient Average duration of nightly device use: 6 HRS 56 MINS Compliance rate %: 100 (02/12/23-05/12/23; 90/90 days used) Current pressure setting (cmH2O): 15-17 (90% avg 17) Average residual AHI: 4.9 Central apnea: 0.6 Obstructive apnea: 3.7 Hypopnea: 0.6 Average large leak: 0 L/min Subjective Patient concerns: reports: other (chronic cough; not while using it but has some cough in AM and in during day). denies: aerophagia, mask discomfort, air blowing in eyes, mask leak noise, condensation in mask/hose, nasal congestion, dry mouth, nose, throat, epistaxis Observed to snore while using device: No Current pressure setting perceived as: comfortable On therapy, patient: reports: sleeping better, awakening more refreshed, being more awake and alert during the day, more rested overall. denies: drowsiness while driving Initial [place] Sleepiness Scale score: 11 (12/03/2022) Current [place] Sleepiness Scale score: 15 (05/14/23- new job with increased stress) Allergies and Home Medications Known drug allergies: No Drug allergies reviewed: Yes Home medication list reviewed: Yes (no changes) Allergy and home medication list: Allergies No Known Drug Allergies Allergy (Verified 05/13/23 12:57) Review of Systems Review of systems same as previous: Yes (NO CHANGE) Physical Exam Vital signs obtained and entered by: ALYSHA Mahmood MA Height: 5 ft 6 in (PER PT) Weight: 245 lb (PER PT) Body Mass Index: 39.5 BMI Classification: Obese Impression and Plan 1. Obstructive Sleep Apnea-Hypopnea Syndrome, very severe, with good treatment compliance and good apnea control. On CPAP therapy, the patient has better sleep quality and is more rested overall. Patient states he has been under a lot of stress and having more difficulty with sleep because he lost a job and started a new job in the last 6 weeks. He does feel the CPAP therapy is going well and that his pressure is comfortable at this time. Goals for apnea control discussed. Patient's apnea severity and rationale for treatment to reduce apnea, improve sleep quality and reduce cardiovascular and cerebrovascular events was reviewed. I also reviewed the benefit of consistent device use of CPAP for hypertension and gastric reflux. 2. Obesity, unspecified. Currently patients BMI is 39.5. Obesity increases the risk of apnea, CPAP pressure requirements and overall health risks especially cardiovascular and diabetes. Thus patient is advised to lose weight. * Continue auto CPAP pressure at 15-17 cmH2O * Notify me if snoring with mask or feeling that the pressure is too much or too little * Attempt to lose weight * Call this office if any problems using CPAP * Return for follow up in 6 months, or sooner if concerns arise Counseling Topics: Spare mask, Weight loss health impact Follow up with Sleep Care in: 6 months Visit Type: Telehealth Phone Video Type: Doximity Patient Location: Work Location of Provider: Office Patient agrees and consents to this telehealth visit type: Yes Patient agrees to have their insurance billed: Yes Time Spent with Patient (minutes): 16 Provider Statement: I spent 100% of the Telehealth Phone Call with the patient with greater than 50% spent counseling the patient and coordination of care.
== END 2023-05-14 10:27 | disposition home or self-care (01) ==
LOC: SC 10:26
PROVIDERS: ATTEND Nurse Practitioner Family
DX: G47.33 Obstructive sleep apnea (adult) (pediatric) (principal); E66.9 Obesity, unspecified; Z68.39 Body mass index [BMI] 39.0-39.9, adult
CPT/HCPCS: 99442